=== PATIENT | female | born 1985 | race Caucasian/White ===

== ENCOUNTER 2016-11-24 09:54 | Emergency (ER) | payer MEDICAID ==
[2016-11-24 10:30] VITALS: BP 118/66
--- NOTE | 2016-11-24 11:27 | EDM.PDOC ---
ED HPI GENERAL MEDICAL PROBLEM - General Chief Complaint: General Stated Complaint: 12 WEEKS PREG- SINUS INFECTION Time Seen by Provider: 11/24/16 10:59 Source of Information: Reports: Patient History Limitations: Reports: No limitations - History of Present Illness INITIAL COMMENTS - FREE TEXT/NARRATIVE: Patient is a 31-year-old female presents ED complaining of sinus congestion, sinus pressure, mild headache, rhinitis, sinus congestion, and mild body aches. States symptoms came on last night. She's had intermittent sore throat secondary to postnasal drip. Denies cough, fever, shortness breath, chest pain , abdominal pain, pain with urination, or rash. States had similar symptoms that started approximately 1week ago that are improving over the last 2 days. Patient states she has a history of bipolar anxiety and is 12 weeks . Has been confirmed via ultrasound and is currently on progesterone. Patient continues to smoke 2 cigarettes a day denies any alcohol or recreational drug use. Patient states she wants antibiotics. 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 (see below) (None stated) Generalized Pain Score (Numeric/FACES): 2 - Related Data Allergies Allergy/AdvReac Type Severity Reaction Status Date / Time No Known Allergies Allergy Verified 11/24/16 10:30 Home Meds: Home Meds Progesterone 50 mg PO DAILY 11/24/16 [History] Past Medical History HEENT History: Reports: Impaired vision Respiratory History: Reports: Bronchitis, recurrent 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: Reports: GERD Musculoskeletal History: Reports: Fracture Other Musculoskeletal History: right foot fracture 3 years ago Neurological History: Reports: Other (see below) Other Neuro History: dizziness Psychiatric History: Reports: Anxiety, Bipolar, Depression - Past Surgical History HEENT Surgical History: Reports: None Respiratory Surgical History: Reports: None GI Surgical History: Reports: None Neurological Surgical History: Reports: None Musculoskeletal Surgical History: Reports: None Social & Family History - Tobacco Use Smoking Status *Q: Current Every Day Smoker Years of Tobacco use: 10 Packs/Tins Daily: 0.2 Used Tobacco, but Quit: No Second Hand Smoke Exposure: Yes - Caffeine Use Caffeine Use: Reports: Coffee - Recreational Drug Use Recreational Drug Use: No Drug Use in Last 12 Months: Yes Recreational Drug Type: Reports: Marijuana/Hashish Recreational Drug Use Frequency: Weekly ED ROS GENERAL - Review of Systems Review Of Systems: See Below Constitutional: Denies: fever, chills, malaise, weakness, fatigue, decreased appetite HEENT: Reports: Rhinitis, Throat pain (Intermittent mild), Other (Sinus pressure ). Denies: Dental pain, Ear discharge, Ear pain, Nose pain, Throat swelling Respiratory: Reports: No Symptoms Cardiovascular: Reports: No symptoms GI/Abdominal: Reports: No symptoms Skin: Reports: no symptoms ED EXAM, GENERAL - Physical Exam Exam: See Below Exam Limited By: No limitations General Appearance: alert, WD/WN, no apparent distress Eye Exam: bilateral eye: PERRL Ears: normal external exam, normal canal, hearing grossly normal, normal TMs Nose: normal inspection, nasal swelling, nasal drainage, clear rhinorrhea. No: no blood, nasal tenderness Throat/Mouth: Normal inspection, Normal oropharynx, Normal voice, No airway compromise Head: atraumatic, normocephalic Neck: normal inspection, supple, non-tender, full range of motion. No: lymphadenopathy (L), lymphadenopathy (R) Respiratory/Chest: no respiratory distress, lungs clear, normal breath sounds, no accessory muscle use, chest non-tender Cardiovascular: normal peripheral pulses, regular rate, rhythm Peripheral Pulses: 2+: radial (L) Neurological: alert, oriented, CN II-XII intact, normal cognition, no motor/ sensory deficits Psychiatric: normal affect, normal mood Skin Exam: Warm, Dry, Intact, Normal color Course - Vital Signs Last Recorded V/S: Last Vital Signs Temp 97.4 F 11/24/16 10:27 Pulse 70 11/24/16 10:27 Resp 18 11/24/16 10:27 BP 118/66 11/24/16 10:27 Pulse Ox 97 11/24/16 10:27 - Re-Assessments/Exams Free Text/Narrative Re-Assessment/Exam: History and physical examination consistent with viral etiology. Treatment is symptomatic care only. Will discharge patient home with instructions as documented. No additional testing is required. 11/24/16 11:23 Departure - Departure Time of Disposition: 11:23 Disposition: Home, Self-Care 01 Condition: good Clinical Impression: Viral upper respiratory infection Qualifiers: Weeks of gestation: 12 weeks Qualified Code(s): Z3A.12 - 12 weeks gestation of Acute sinusitis Qualifiers: Sinusitis location: maxillary Recurrence: non-recurrent Qualified Code(s): J01.00 - Acute maxillary sinusitis, unspecified Instructions: First Trimester of , [id number], Sinusitis, Adult, Gizh-xe-Opri, Upper Respiratory Infection, Adult, Rnhs-ti-Xesc Referrals: Marleni Szymanski [employer] [Primary Care Provider] - Forms: ED Department Discharge Additional Instructions: As discussed symptoms are most likely related to a viral upper respiratory infection. Treatment is symptomatic care only. This will take approximately 7 to 10 days to improve. Ensure adequate hydration, sleep, and adequate diet. Can take afrin 1 spray each nare twice a day for three days for sinus congestion. Utilize nasal saline spray to each nare as needed for sinus congestion. Refrain from any other OTC medications without consulting pharmacist due to . Followup with PCP in the next week if symptoms have not improved. Return to the E.D. if you develop any new or worsening symptoms.
== END 2016-11-24 11:37 | disposition home or self-care (01) ==
LOC: JD.ED 09:54
DX: O99.511 Diseases of the respiratory system complicating pregnancy, first trimester (principal); J01.00 Acute maxillary sinusitis, unspecified; O99.331 Smoking (tobacco) complicating pregnancy, first trimester; F17.210 Nicotine dependence, cigarettes, uncomplicated; Z3A.12 12 weeks gestation of pregnancy; Z79.899 Other long term (current) drug therapy
CPT/HCPCS: 99283

== ENCOUNTER 2017-06-02 22:27 | Inpatient (IN) | payer MEDICAID ==
[2017-06-02] MEDS ORDERED: Ondansetron 4 MG/2 ML SDV IVPUSH PRN (23:41)
[2017-06-02] MEDS ORDERED: Nalbuphine 20 MG/1 ML Amp IVPUSH PRN (23:41)
[2017-06-02] MEDS ORDERED: Lidocaine 1% 50 ML MDV INJECT ONE (23:41)
[2017-06-02] MEDS ORDERED: Sodium Chloride 0.9% 10 ML Syringe FLUSH PRN (23:41)
[2017-06-02] MEDS ORDERED: Oxytocin/Lactated Ringers 10 UNIT/1,000 ML BAG IV SCH (23:45)
[2017-06-02] MEDS ORDERED: Lactated Ringers 1,000 ML IV SCH (23:45)
[2017-06-03] MEDS ORDERED: fentaNYL 100 MCG/2 ML SDV EPIDUR PRN (01:17)
[2017-06-03] MEDS ORDERED: Ondansetron 4 MG/2 ML SDV IVPUSH PRN (01:17)
[2017-06-03] MEDS ORDERED: ePHEDrine 50 MG/ML SDV IVPUSH PRN (01:17)
[2017-06-03] MEDS ORDERED: Bupivacaine/fentaNYL/NS 100 ML Bag EPIDUR SCH (01:30)
--- NOTE | 2017-06-03 02:22 | PCM.LDHP ---
L&D History of Present Illness - General Date of Service: 06/02/17 Admit Problem/Dx: Patient Status Order with Admit Dx/Problem 06/02/17 23:42 Patient Status [ADT] Routine Admission Diagnosis/Problem Admission Diagnosis/Problem Labor established 06/03/17 02:08 39-1/7 week intrauterine , active labor, spontaneous rupture of membranes Source of Information: Patient History Limitations: Reports: No Limitations - History of Present Illness Introduction:: H&P-done after precipitous labor and the delivery of the baby. Nicole is a 31-year-old 1 para 0 white female was admitted on late night of 06/02/2017 for spontaneous rupture membranes, active labor. She progressed rapidly from 2 cm to complete by approximately 0130 hrs. on 2016. She pushed for approximately 15 minutes and delivered a viable, cheema , female infant with Apgars of 8 and 9, in a left occiput anterior position over a second-degree perineal laceration at 0146 hrs. Nose and mouth were bulb suctioned and the baby was placed on mom's abdomen. The baby weighed 7 lbs. 4 oz. (3290 g) and was 20.5 inches long. The placenta delivered intact, in a Broussard presentation and appeared complete. Lidocaine 1%-8 mL was used for anesthesia. Repair was done with 3-0 Monocryl in a routine fashion. EBL was 100 mL. Condition after delivery: Good. Pitocin was given per IV to facilitate increase in uterine tone and decrease risk of bleeding. Patient nursed the baby after delivery. 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 Her MEGAN is 06/09/2017 as per an early ultrasound done at 7-5/7 weeks gestational age and supported by 2 other ultrasounds done on 01/23/2017 and 01/29/2017. course was relatively unremarkable. Her menarche was at age 18. Cycles fairly regular but last menstrual period was not certain at 08/14/2016 onset. Patient has had some anxiety during the course of the loop care and was on sertraline until approximately 36 weeks. She had a left breast nodule during which remained stable and was felt to be benign. She declined genetic testing. [place] depression screening done on 01/31/2017 was within normal limits. Her group B strep screen was negative. She has a history of bipolar disorder diagnosed as a child but never treated until present. 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 Patient was smoking at the onset of the but quit by 20 weeks. She had a history of scabies during the and was treated. Weight gain during the course of was from a pregravid weight of 150.8 to the last weight of 198.8. This was a 48 pound weight gain. Her vital signs remained stable throughout the course. laboratory testing: Blood is O+. Antibody screen is negative. Hemoglobin on first visit was 12.9 g/dL. Platelets were 224,000. Pap smear was normal. Rubella titer showed immunity. RPR is nonreactive. Hepatitis B surface antigen and HIV assays were negative. Chlamydia and gonorrhea both negative. Second trimester labs showed a hemoglobin of 12.3 g/dL-normal. Her platelet count was 205,000 and her 1 hour glucose tarsus was 108. Group B strep screen was negative. Allergies: none Medications: vitamins 1 daily Past medical history: 1. Bipolar disorder, anxiety. Past surgical history: 1. Trigger thumb release at age 4 Family history: Father's had 3 heart attacks. Mother is alive and well. No , anesthesia, bleeding or blood clotting problems noted family. Social history: Patient is single, lives in [facility]. She does not use any significant amount of local, drugs or tobacco however did smoke 1 pack per day during the early part of the . Review of systems: Skin: Negative Lungs: No infection or asthma noted Cardiovascular: No shortness of breath or exercise intolerance. Breasts: Changes cirrhosis GI: Negative : Changes associated with Neurological: Negative Musculoskeletal: Occasional erythema associated with . Physical exam: On last evaluation in clinic patient was 5 feet 8 inches tall. Pregravid weight was 150.8 (body mass index of 22.2) with last weight 198.8 pounds for a 40 pound weight gain. Her last blood pressure was 132/80. heart rate then was 151. In general the patient is a well-developed, well-nourished, pleasant female of stated age in no acute distress. Skin is warm and dry without lesions. Lungs are clear with good breath sounds in all lung maynard. Cardiovascular exam shows regular rate and rhythm without murmurs. Breast exam is deferred having been done at first visit found to be with small nodule. This was evaluated with ultrasound and felt to be benign. Abdomen is protuberant with with last fundal height at 39 inches. Baby in vertex presentation Extremities show no significant edema, otherwise normal. Neurological exam normal. Pain Score: 9 - Related Data Allergies/Adverse Reactions: Allergies Allergy/AdvReac Type Severity Reaction Status Date / Time No Known Allergies Allergy Verified 11/24/16 10:30 Home Medications: Home Meds Docusate Sodium [Colace] 100 mg PO DAILY 02/16/17 [History] Pedi Multivit No.7/Folic Acid [Flintstones Tab] 2 tab PO DAILY 02/16/17 [History ] Sertraline [Zoloft] 50 mg PO DAILY 02/16/17 [History] Past Medical History HEENT History: Reports: Impaired Vision Respiratory History: Reports: Bronchitis, Recurrent 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: Reports: GERD Musculoskeletal History: Reports: Fracture Other Musculoskeletal History: right foot fracture 3 years ago Neurological History: Reports: Other (See Below) Other Neuro History: dizziness Psychiatric History: Reports: Anxiety, Bipolar, Depression - Past Surgical History HEENT Surgical History: Reports: None Respiratory Surgical History: Reports: None GI Surgical History: Reports: None Neurological Surgical History: Reports: None Musculoskeletal Surgical History: Reports: None Social & Family History - Tobacco Use Smoking Status *Q: Current Every Day Smoker Years of Tobacco use: 10 Packs/Tins Daily: 0.2 Used Tobacco, but Quit: No Second Hand Smoke Exposure: Yes - Caffeine Use Caffeine Use: Reports: Coffee - Recreational Drug Use Recreational Drug Use: No Drug Use in Last 12 Months: Yes Recreational Drug Type: Reports: Marijuana/Hashish Recreational Drug Use Frequency: Weekly H&P Review of Systems - Review of Systems: Review Of Systems: See Below L&D Exam - Exam Exam: See Below - Vital Signs Weight: 91.626 kg - Patient Data Lab Results Last 24 hrs: Laboratory Results - last 24 hr 06/03/17 06/03/17 Range/Units 00:30 00:30 WBC 16.73 H (3.98-10.04) K/mm3 RBC 4.06 (3.98-5.22) M/mm3 Hgb 12.1 (11.2-15.7) gm/L Hct 35.2 (34.1-44.9) % MCV 86.7 (79.4-94.8) fl MCH 29.8 (25.6-32.2) pg MCHC 34.4 (32.2-35.5) g/dl RDW Std Deviation 41.4 (36.4-46.3) fL Plt Count 173 L (182-369) K/mm3 MPV 11.5 (9.4-12.3) fl Neut % (Auto) 80.1 H (34.0-71.1) % Lymph % (Auto) 10.6 L (19.3-51.7) % [place] % (Auto) 8.2 (4.7-12.5) % Eos % (Auto) 0.5 L (0.7-5.8) Baso % (Auto) 0.1 (0.1-1.2) % Neut # (Auto) 13.41 H (1.56-6.13) K/mm3 Lymph # (Auto) 1.77 (1.18-3.74) K/mm3 [place] # (Auto) 1.37 H (0.24-0.36) K/mm3 Eos # (Auto) 0.08 (0.04-0.36) K/mm3 Baso # (Auto) 0.02 (0.01-0.08) K/mm3 Blood Type O POSITIVE Gel Antibody Screen Negative Result Diagrams: 06/03/17 00:30 Problem List Initiated/Reviewed/Updated: Yes Orders Last 24hrs: Active Orders 24 hr Category Date Time Status Patient Status [ADT] Routine ADT 06/02/17 23:42 Active Activity as Tolerated [RC] PFP Care 06/02/17 23:42 Active Communication Order [RC] ASDIRECTED Care 06/02/17 23:42 Active Heart Tones [RC] ASDIRECTED Care 06/02/17 23:43 Active Notify Provider [RC] ASDIRECTED Care 06/03/17 01:17 Active Notify Provider [RC] PFP Care 06/02/17 23:42 Active Notify Provider [RC] PRN Care 06/02/17 23:42 Active Oxygen Therapy [RC] ASDIRECTED Care 06/03/17 01:17 Active Peripheral IV Care [RC] . DIRECTED Care 06/02/17 23:43 Active Pulse Oximetry [RC] ASDIRECTED Care 06/03/17 01:17 Active Vital Signs [RC] PER UNIT ROUTINE Care 06/02/17 23:42 Active Bupivacaine/fentaNYL/NS [fentaNYL/Bupivacaine/NS 2 MCG- Med 06/03/17 01:30 Active 0.125% 100 ML] 100 ml EPIDUR ASDIRECTED Lactated Ringers [Ringers, Lactated] 1,000 ml Med 06/02/17 23:45 Active IV ASDIRECTED Nalbuphine [Nubain] Med 06/02/17 23:41 Active 10 mg IVPUSH Q2H PRN Ondansetron [Zofran] Med 06/03/17 01:17 Active 4 mg IVPUSH ONETIME PRN Ondansetron [Zofran] Med 06/02/17 23:41 Active 4 mg IVPUSH Q4H PRN Oxytocin/Lactated Ringers [Pitocin in LR 10 Units/1,000 Med 06/02/17 23:45 Active ML] 10 unit in 1,000 ml IV .CONTINUOUS Sodium Chloride 0.9% [Saline Flush] Med 06/02/17 23:41 Active 10 ml FLUSH ASDIRECTED PRN ePHEDrine [ePHEDrine Sulfate] Med 06/03/17 01:17 Active 5 mg IVPUSH ASDIRECTED PRN fentaNYL [Sublimaze] Med 06/03/17 01:17 Active 100 mcg EPIDUR Q3H PRN Electronic Heart Tones Ext w TOCO [WOMSER] Oth 06/02/17 23:42 Ordered Routine Electronic Heart Tones Internal [WOMSER] Per Unit Oth 06/02/17 23:42 Ordered Routine Peripheral IV Insertion Adult [OM.PC] Routine Oth 06/02/17 23:42 Ordered Resuscitation Status Routine Resus Stat 06/02/17 23:41 Ordered Medication Orders Ephedrine Sulfate (Ephedrine Sulfate) 5 mg IVPUSH ASDIRECTED PRN PRN Reason: Hypotension Fentanyl (Sublimaze) 100 mcg EPIDUR Q3H PRN PRN Reason: Pain Fentanyl/Bupivacaine HCl (Fentanyl/Bupivacaine/Ns 2 Mcg-0.125% 100 Ml) 100 ml EPIDUR ASDIRECTED EB Lactated Ringer's (Ringers, Lactated) 1,000 mls @ 100 mls/hr IV ASDIRECTED EB Oxytocin/Lactated Ringer's (Pitocin In Lr 10 Units/1,000 Ml) 10 unit in 1,000 mls @ 500 mls/hr IV .CONTINUOUS EB Nalbuphine HCl (Nubain) 10 mg IVPUSH Q2H PRN PRN Reason: Pain (moderate 4-6) Last Admin: 06/03/17 00:06 Dose: 10 mg Ondansetron HCl (Zofran) 4 mg IVPUSH Q4H PRN PRN Reason: Nausea/Vomiting Ondansetron HCl (Zofran) 4 mg IVPUSH ONETIME PRN PRN Reason: Nausea/Vomiting Sodium Chloride (Saline Flush) 10 ml FLUSH ASDIRECTED PRN PRN Reason: Keep Vein Open Assessment/Plan Comment:: Assessment: 1. 39-17 week IUP, sweatiness rupture of membranes, active precipitous labor with delivery. 2. Group B strep screen negative 3. Patient did desire an epidural but was unable to have this because of precipitous nature of her labor. 4. Patient plans to breast-feed 5. Patient has a history of bipolar disorder and anxiety, treated with sertraline in until 36 weeks Plan: 1. Routine care 2. Regular, nursing diet 3. Continue vitamins 4. Patient desires not to restart sertraline at this time. 5. CBC in the a.m.
--- NOTE | 2017-06-03 02:26 | PCM.SN ---
- Free Text/Narrative Note: Delivery note: Nicole is a 31-year-old 1 para 0 white female was admitted late on the night of 06/02/2017 for spontaneous rupture membranes, active labor. She progressed rapidly from 2 cm to complete by approximately 0130 hrs. on 2016. She pushed for approximately 15 minutes and delivered a viable, cheema , female with Apgars of 8 and 9, in a left occiput anterior position over a second-degree perineal laceration at 0146 hrs. Nose and mouth were bulb suctioned and the baby was placed on mom's abdomen. The baby weighed 7 lbs. 4 oz. (3290 g) and was 20.5 inches long. The placenta delivered intact, in a Broussard presentation and appeared complete. Lidocaine 1%-8 mL was used for anesthesia. Repair was done with 3-0 Monocryl in a routine fashion. EBL was 100 mL. Condition after delivery: Good. Pitocin was given per IV to facilitate increase in uterine tone and decrease risk of bleeding. Patient nursed the baby after delivery. Baby's name is Denice Escudero.
[2017-06-03] MEDS ORDERED: Lanolin 100% Cream 7 GM Tube TOP PRN (04:54)
[2017-06-03] MEDS ORDERED: Acetaminophen 325 MG Tab PO PRN (04:54)
[2017-06-03] MEDS ORDERED: Witch Hazel Medicated Pads 100/Jar TOP PRN (04:54)
[2017-06-03] MEDS ORDERED: Benzocaine/Menthol 20%-0.5% Spray 56 GM Canister TOP PRN (04:54)
[2017-06-03] MEDS ORDERED: Docusate Sodium 100 MG Cap PO PRN (04:54)
[2017-06-03] MEDS: Ibuprofen 600 MG Tab PO PRN ×4 (07:41→21:30)
[2017-06-03] MEDS ORDERED: Prenatal Multivitamin with Calcium/Folic Acid/Iron Tab PO SCH (09:00)
[2017-06-03] MEDS ORDERED: Famotidine 20 MG Tab PO PRN (09:03)
[2017-06-04] MEDS: Ibuprofen 600 MG Tab PO PRN ×2 (04:16→09:38)
[2017-06-04 10:02] VITALS: BP 129/67
--- NOTE | 2017-06-04 11:35 | PCM.DCSUM1 ---
Discharge Summary - Hospital Course Free Text/Narrative:: Nicole is a 31-year-old 1 para 0 white female was admitted late on the night of 06/02/2017 for spontaneous rupture membranes, active labor. She progressed rapidly from 2 cm to complete by approximately 0130 hrs. on 2016. She pushed for approximately 15 minutes and delivered a viable, cheema , female infant with Apgars of 8 and 9, in a left occiput anterior position over a second-degree perineal laceration at 0146 hrs. Nose and mouth were bulb suctioned and the baby was placed on mom's abdomen. The baby weighed 7 lbs. 4 oz. (3290 g) and was 20.5 inches long. The placenta delivered intact, in a Broussard presentation and appeared complete. Lidocaine 1%-8 mL was used for anesthesia. Repair was done with 3-0 Monocryl in a routine fashion. EBL was 100 mL. Condition after delivery: Good. Pitocin was given per IV to facilitate increase in uterine tone and decrease risk of bleeding. Patient nursed the baby after delivery. Baby's name is Denice Escudero. she has done very well. She is nursing without problems, ambulating well, has minimal lochia and has had a normal follow-up CBC. She is desiring discharge home. - Discharge Data Discharge Date: 06/04/17 Discharge Disposition: Home, Self-Care 01 Condition: Good - Patient Instructions Diet: Regular Diet as Tolerated (Nursing diet with increased calcium and calories as recommended) Activity: As Tolerated (No intercourse or tampons until bleeding resolves) Driving: May Drive Today Showering/Bathing: May Shower (May take a bath) - Discharge Plan Home Medications: Home Meds Docusate Sodium [Colace] 100 mg PO DAILY 02/16/17 [History] Pedi Multivit No.7/Folic Acid [Flintstones Tab] 2 tab PO DAILY 02/16/17 [History ] Ibuprofen [IJD: Ibuprofen] 600 mg PO Q4H PRN #30 tablet 06/04/17 [Rx] Referrals: John Hare MD [Primary Care Provider] - (Return to clinic-Dr. Hare-2 weeks-[facility] - Discharge Summary/Plan Comment DC Time >30 min.: No Discharge Summary/Plan Comment: Discharge instructions: 1. Discharge home 2. Regular, high fiber, nursing diet 3. Activity and follow-up discussed in detail. 4. Medications per home medication printed, discussed with and given to the patient. 5. Precautions given concern increased pain, bleeding, temperature, signs/ symptoms of DVT/PE. 6. Return to clinic-Dr. Hare-2 weeks-[facility]. Diagnosis: 39 week intrauterine -delivered Condition: Good - Patient Data Vitals - Most Recent: Last Vital Signs Temp 36.4 C 06/04/17 09:43 Pulse 85 06/04/17 09:43 Resp 16 06/04/17 09:43 BP 129/67 06/04/17 09:43 Pulse Ox 100 06/04/17 09:43 Weight - Most Recent: 91.626 kg I&O - Last 24 hours: Intake & Output 06/03/17 06/04/17 06/04/17 22:59 06:59 14:59 Intake Total 540 360 Balance 540 360 Lab Results - Last 24 hrs: Laboratory Results - last 24 hr 06/04/17 Range/Units 06:30 WBC 15.40 H (3.98-10.04) K/mm3 RBC 3.57 L (3.98-5.22) M/mm3 Hgb 10.6 L (11.2-15.7) gm/L Hct 32.1 L (34.1-44.9) % MCV 89.9 (79.4-94.8) fl MCH 29.7 (25.6-32.2) pg MCHC 33.0 (32.2-35.5) g/dl RDW Std Deviation 43.9 (36.4-46.3) fL Plt Count 186 (182-369) K/mm3 MPV 11.4 (9.4-12.3) fl Med Orders - Current: Current Medications Acetaminophen (Tylenol) 650 mg PO Q4H PRN PRN Reason: mild pain or fever Last Admin: 06/03/17 23:35 Dose: 650 mg Benzocaine/Menthol (Dermoplast Pain Relief [place]) 0 gm TOP ASDIRECTED PRN PRN Reason: Perineal Comfort Measure Last Admin: 06/03/17 23:36 Dose: 1 canister Docusate Sodium (Colace) 100 mg PO BID PRN PRN Reason: Constipation Emollient Ointment (Lansinoh Hpa) 0 gm TOP ASDIRECTED PRN PRN Reason: Sore Nipples Last Admin: 06/03/17 19:19 Dose: 1 applic Famotidine (Pepcid) 20 mg PO BID PRN PRN Reason: Heartburn Ibuprofen (Motrin) 600 mg PO Q4H PRN PRN Reason: Mild pain or fever Last Admin: 06/04/17 09:38 Dose: 600 mg Prenat Multivit/[place]/Iron/Folic Ac ( Plus Iron) 1 each PO DAILY [facility] Last Admin: 06/03/17 14:24 Dose: Not Given Witch Nubia (Tucks) 1 pad TOP ASDIRECTED PRN PRN Reason: Hemorrhoid pain Last Admin: 06/03/17 23:36 Dose: 1 box Discontinued Medications Ephedrine Sulfate (Ephedrine Sulfate) 5 mg IVPUSH ASDIRECTED PRN PRN Reason: Hypotension Fentanyl (Sublimaze) 100 mcg EPIDUR Q3H PRN PRN Reason: Pain Fentanyl/Bupivacaine HCl (Fentanyl/Bupivacaine/Ns 2 Mcg-0.125% 100 Ml) 100 ml EPIDUR ASDIRECTED [facility] Lactated Ringer's (Ringers, Lactated) 1,000 mls @ 100 mls/hr IV ASDIRECTED [facility] Last Admin: 06/02/17 23:30 Dose: 100 mls/hr Oxytocin/Lactated Ringer's (Pitocin In Lr 10 Units/1,000 Ml) 10 unit in 1,000 mls @ 500 mls/hr IV .CONTINUOUS [facility] Last Admin: 06/03/17 01:47 Dose: 500 mls/hr Lidocaine HCl (Xylocaine 1%) 50 ml INJECT ONETIME ONE Stop: 06/02/17 23:42 Last Admin: 06/03/17 01:50 Dose: 50 ml Nalbuphine HCl (Nubain) 10 mg IVPUSH Q2H PRN PRN Reason: Pain (moderate 4-6) Last Admin: 06/03/17 00:06 Dose: 10 mg Ondansetron HCl (Zofran) 4 mg IVPUSH Q4H PRN PRN Reason: Nausea/Vomiting Ondansetron HCl (Zofran) 4 mg IVPUSH ONETIME PRN PRN Reason: Nausea/Vomiting Sodium Chloride (Saline Flush) 10 ml FLUSH ASDIRECTED PRN PRN Reason: Keep Vein Open *Q Meaningful Use (DIS) - VTE *Q VTE Criteria *Q: - Stroke *Q Stroke Criteria *Q: - AMI *Q AMI Criteria *Q:
== END 2017-06-04 11:30 | disposition home or self-care (01) | DRG 775 ==
LOC: JD.OBCHECK 22:27 → JD.OB 22:29 → JD.OBCHECK 06-03 00:05 → JD.OB 06-03 00:06 → OBSVTOIN 06-03 01:46 → JD.OB 06-03 01:46
PROVIDERS: ADMIT Obstetrics & Gynecology; ATTEND Obstetrics & Gynecology
PROC: 10E0XZZ Delivery of Products of Conception, External Approach (ICD-10-PCS; principal; 2017-06-03)
PROC: 0KQM0ZZ Repair Perineum Muscle, Open Approach (ICD-10-PCS; 2017-06-03)
DX: O42.02 Full-term premature rupture of membranes, onset of labor within 24 hours of rupture (principal); Z37.0 Single live birth; Z3A.39 39 weeks gestation of pregnancy; O99.334 Smoking (tobacco) complicating childbirth; O99.344 Other mental disorders complicating childbirth; F41.8 Other specified anxiety disorders; Z79.899 Other long term (current) drug therapy; O62.3 Precipitate labor; O70.1 Second degree perineal laceration during delivery
CPT/HCPCS: 36415; 59300; 59409; 85025; 85027; 86850; 86900; 86901; A9270-GY; J2300; J2590; J7120

== ENCOUNTER 2017-06-30 14:26 | Emergency (ER) | payer MEDICAID ==
[2017-06-30 14:51] VITALS: BP 124/91
[2017-06-30] MEDS ORDERED: Ibuprofen 800 MG Tab PO ONE (15:30)
--- NOTE | 2017-06-30 15:32 | EDM.PDOC ---
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 She is 4 weeks post after a normal vaginal delivery, not complicated, which occurred on June 03. Since then she's been doing well. She states that she did have heavy bleeding initially after the and then some brownish vaginal discharge for a while and this had completely resolved. Then 2 days ago she started to get brighter red bleeding again more similar to a menstrual period. She comes in for evaluation of this. States that the bleeding has been moderately heavy, similar to a menstrual period. She is not passing clots. No abdominal pain. No fever. No additional complaint. She is not breast-feeding. She is not using any hormonal control. - Related Data Allergies Allergy/AdvReac Type Severity Reaction Status Date / Time No Known Allergies Allergy Verified 06/30/17 14:46 Home Meds: Home Meds Pedi Multivit No.7/Folic Acid [Flintstones Tab] 2 tab PO DAILY 02/16/17 [History ] Ibuprofen [IJD: Ibuprofen] 600 mg PO Q4H PRN #30 tablet 06/04/17 [Rx] Past Medical History HEENT History: Reports: Impaired Vision Respiratory History: Reports: Bronchitis, Recurrent 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: Reports: GERD Musculoskeletal History: Reports: Fracture Other Musculoskeletal History: right foot fracture 3 years ago Neurological History: Reports: Other (See Below) Other Neuro History: dizziness Psychiatric History: Reports: Anxiety, Bipolar, Depression - Past Surgical History HEENT Surgical History: Reports: None Respiratory Surgical History: Reports: None GI Surgical History: Reports: None Neurological Surgical History: Reports: None Musculoskeletal Surgical History: Reports: None Social & Family History - Tobacco Use Smoking Status *Q: Never Smoker Years of Tobacco use: 10 Packs/Tins Daily: 0.2 Used Tobacco, but Quit: No Second Hand Smoke Exposure: Yes - Caffeine Use Caffeine Use: Reports: Coffee, Soda - Recreational Drug Use Recreational Drug Use: No Drug Use in Last 12 Months: Yes Recreational Drug Type: Reports: Marijuana/Hashish Recreational Drug Use Frequency: Weekly ED ROS GENERAL - Review of Systems Review Of Systems: See Below Constitutional: Denies: Fever Respiratory: Denies: Cough Cardiovascular: Denies: Chest Pain Endocrine: Reports: No Symptoms GI/Abdominal: Denies: Abdominal Pain : Denies: Pain Hematologic/Lymphatic: Denies: Easy Bleeding ED EXAM, RENAL/ - Physical Exam Exam: See Below Exam Limited By: No Limitations General Appearance: Alert, WD/WN, No Apparent Distress Eye Exam: Bilateral Eye: Normal Inspection Ears: Normal External Exam Nose: Normal Inspection Throat/Mouth: Normal Inspection, Normal Oropharynx, Normal Voice, No Airway Compromise Head: Atraumatic, Normocephalic Neck: Normal Inspection Respiratory/Chest: No Respiratory Distress, Lungs Clear, Normal Breath Sounds Cardiovascular: Normal Peripheral Pulses, Regular Rate, Rhythm, No Murmur GI/Abdominal: Soft, Non-Tender, No Distention. No: Rebound (Female) Exam: Normal External Exam, Vaginal Bleeding (Mild, dark red, no clots) Extremities: Normal Inspection Neurological: Alert, Oriented, Normal Cognition Psychiatric: Normal Affect, Normal Mood Skin Exam: Warm, Dry, Intact, Normal Color, No Rash Course - Vital Signs Last Recorded V/S: Last Vital Signs Temp 36.3 C 06/30/17 14:47 Pulse 89 06/30/17 14:47 Resp 12 06/30/17 14:47 BP 124/91 H 06/30/17 14:47 Pulse Ox 98 06/30/17 14:47 - Orders/Labs/Meds Orders: Active Orders 24 hr Category Date Time Status Pelvic Exam, Set Up [RC] ASDIRECTED Care 06/30/17 15:30 Active TYPE AND SCREEN [BBK] Stat Lab 06/30/17 15:11 Ordered Labs: Laboratory Tests 06/30/17 06/30/17 Range/Units 15:20 15:20 WBC 13.12 H (3.98-10.04) K/mm3 RBC 4.76 (3.98-5.22) M/mm3 Hgb 13.7 (11.2-15.7) gm/L Hct 42.3 (34.1-44.9) % MCV 88.9 (79.4-94.8) fl MCH 28.8 (25.6-32.2) pg MCHC 32.4 (32.2-35.5) g/dl RDW Std Deviation 41.5 (36.4-46.3) fL Plt Count 268 (182-369) K/mm3 MPV 11.2 (9.4-12.3) fl Neut % (Auto) 76.2 H (34.0-71.1) % Lymph % (Auto) 16.3 L (19.3-51.7) % Atkinson % (Auto) 4.7 (4.7-12.5) % Eos % (Auto) 2.4 (0.7-5.8) Baso % (Auto) 0.2 (0.1-1.2) % Neut # (Auto) 9.99 H (1.56-6.13) K/mm3 Lymph # (Auto) 2.14 (1.18-3.74) K/mm3 Atkinson # (Auto) 0.62 H (0.24-0.36) K/mm3 Eos # (Auto) 0.31 (0.04-0.36) K/mm3 Baso # (Auto) 0.03 (0.01-0.08) K/mm3 Sodium 143 (136-145) mEq/L Potassium 3.8 (3.5-5.1) mEq/L Chloride 105 (98-107) mEq/L Carbon Dioxide 28 (21-32) mEq/L Anion Gap 13.8 (5-15) BUN 13 (7-18) mg/dL Creatinine 0.9 (0.55-1.02) mg/dL Est Cr Clr Drug Dosing 93.04 mL/min Estimated GFR (MDRD) > 60 (>60) mL/min BUN/Creatinine Ratio 14.4 (14-18) Glucose 98 (74-106) mg/dL Calcium 9.1 (8.5-10.1) mg/dL Total Bilirubin 0.2 (0.2-1.0) mg/dL AST 24 (15-37) U/L ALT 29 (14-59) U/L Alkaline Phosphatase 100 (46-116) U/L Total Protein 7.3 (6.4-8.2) g/dl Albumin 3.4 (3.4-5.0) g/dl Globulin 3.9 gm/dL Albumin/Globulin Ratio 0.9 L (1-2) Meds: Medications Discontinued Medications Generic Name Dose Route Start Last Admin Trade Name Freq PRN Reason Stop Dose Admin Ibuprofen 800 mg 06/30/17 15:30 06/30/17 15:33 Motrin PO 06/30/17 15:31 800 mg ONETIME ONE Administration - Re-Assessments/Exams Free Text/Narrative Re-Assessment/Exam: 06/30/17 16:15 Hematocrit 42. Labs otherwise unremarkable. Discussed with Dr. Gillespie who agrees that this could be onset of her menses though it is early, however given lack of any additional symptoms and mild bleeding and benign exam with no anemia she does not feel the patient needs any further testing here in the emergency department. Discussed return precautions. The patient was follow-up with her OB provider this week. Departure - Departure Time of Disposition: 15:52 Disposition: Home, Self-Care 01 Clinical Impression: Vaginal bleeding - Discharge Information Instructions: Abnormal Uterine Bleeding Referrals: Marleni Szymanski, FAMILY LIFE EDUCATOR [Primary Care Provider] - Forms: ED Department Discharge Additional Instructions: 1. Follow up with Marleni Szymanski this week for further care 2. Return to the Emergency Department if you have any new concerning symptoms, such as severe abdominal pain, very heavy bleeding passing large clots and soaking through a pad or more per hour, or other concerning symptoms - My Orders Last 24 Hours: My Active Orders 06/30/17 15:11 TYPE AND SCREEN [BBK] Stat 06/30/17 15:30 Pelvic Exam, Set Up [RC] ASDIRECTED - Assessment/Plan Last 24 Hours: My Active Orders 06/30/17 15:11 TYPE AND SCREEN [BBK] Stat 06/30/17 15:30 Pelvic Exam, Set Up [RC] ASDIRECTED
== END 2017-06-30 16:14 | disposition home or self-care (01) ==
LOC: JD.ED 14:26
DX: O72.1 Other immediate postpartum hemorrhage (principal); Z79.899 Other long term (current) drug therapy
CPT/HCPCS: 36415; 80053; 85025; 86850; 86900; 86901; 99284; A9270; 99283

== ENCOUNTER 2017-11-20 08:22 | Emergency (ER) | payer MEDICAID ==
[2017-11-20 08:44] VITALS: BP 103/73
--- NOTE | 2017-11-20 09:39 | EDM.PDOC ---
ED HPI GENERAL MEDICAL PROBLEM - General Chief Complaint: Back Pain or Injury Stated Complaint: TAILBONE INJURY Time Seen by Provider: 11/20/17 09:34 Source of Information: Reports: Patient History Limitations: Reports: No Limitations - History of Present Illness INITIAL COMMENTS - FREE TEXT/NARRATIVE: 32-year-old female presents the ED after slipping and falling on ice outside her home yesterday morning about 11:00 or 11:30. She states she was striking the dog in the house with open door and slipped and fell with her hands. While boxing groceries. She landed hard on her buttock and lower back. She denies hitting her head hard was no loss of conscious. She did recognize that she suffered like a whiplash or hyperextension injury to her neck and has some pain in her neck as well. However this morning she's got increased pain throughout the thoracic lumbar spine and sacrum and coccyx tailbone area. He walking like a really old lady. Only one Aleve yesterday for pain. States it hurt to carry her 5-month-old daughter this morning. Examination reveals tenderness particularly lower back L4-L5 L5 fast S1 facet joints and throughout the sacrum and coccyx. There is pain throughout the thoracic spine but there is no spinous process abnormalities on examination or paraspinal muscle spasm. Plan x-ray of the T-spine AP and lateral views only. CT lumbar spine and pelvis to visualize the sacrum and cost 6 adequately. At this time will not provide any pain relief as she drove herself here. Onset Date: 11/19/17 Onset Time: 09:30 Duration: Hour(s): Location: Reports: Neck, Back, Pelvis (Sacrum and coccyx area.) Quality: Reports: Ache, Throbbing Severity: Moderate (Rates current pain as 7 out of 10. This is mostly in the coccyx.) Improves with: Reports: Rest Worsens with: Reports: Other, Movement Context: Reports: Trauma (Slipped and fell on the ice landing buttock first.). Denies: Activity (Especially sitting.), Exercise, Lifting, Sick Contact Associated Symptoms: Reports: No Other Symptoms Treatments NURSE PRACTITIONER PER DIEM: Reports: Acetaminophen Neck Pain Score (Numeric/FACES): 9 Lower Back Pain Score (Numeric/FACES): 7 - Related Data Allergies Allergy/AdvReac Type Severity Reaction Status Date / Time No Known Allergies Allergy Verified 11/20/17 08:43 Home Meds: Home Meds Diclofenac Sodium [Voltaren] 50 mg PO TID #24 tab.ec 11/20/17 [Rx] Ondansetron [Zofran] 4 mg BUCCAL Q6H PRN #10 tab 11/20/17 [Rx] oxyCODONE HCl/Acetaminophen [Percocet 5-325 mg Tablet] 1 - 2 each PO Q6H PRN # 16 tablet 11/20/17 [Rx] Past Medical History HEENT History: Reports: Impaired Vision Respiratory History: Reports: Bronchitis, Recurrent 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: Reports: 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: Musculoskeletal History: Reports: Fracture Other Musculoskeletal History: right foot fracture 3 years ago Neurological History: Reports: Other (See Below) Other Neuro History: dizziness Psychiatric History: Reports: Anxiety, Bipolar, Depression - Past Surgical History HEENT Surgical History: Reports: None Respiratory Surgical History: Reports: None GI Surgical History: Reports: None Neurological Surgical History: Reports: None Musculoskeletal Surgical History: Reports: None Social & Family History - Family History Cardiac: Reports: [place] Oncologic: Reports: Leukemia - Tobacco Use Smoking Status *Q: Current Every Day Smoker Years of Tobacco use: 14 Packs/Tins Daily: 0.4 Used Tobacco, but Quit: No Second Hand Smoke Exposure: Yes - Caffeine Use Caffeine Use: Reports: Coffee, Soda - Recreational Drug Use Recreational Drug Use: No Drug Use in Last 12 Months: Yes Recreational Drug Type: Reports: Marijuana/Hashish Recreational Drug Use Frequency: Weekly ED ROS GENERAL - Review of Systems Review Of Systems: See Below Constitutional: Reports: No Symptoms HEENT: Reports: No Symptoms Respiratory: Reports: No Symptoms Cardiovascular: Reports: No Symptoms Endocrine: Reports: No Symptoms GI/Abdominal: Reports: No Symptoms : Reports: No Symptoms Musculoskeletal: Reports: Back Pain (Neck pain mid back pain and low back pain and sacrum and coccyx pain.) Skin: Reports: No Symptoms ( Extremity injuries) Neurological: Reports: No Symptoms Psychiatric: Reports: No Symptoms Hematologic/Lymphatic: Reports: No Symptoms Immunologic: Reports: No Symptoms ED EXAM,LOWER BACK PAIN/INJURY - Physical Exam Exam: See Below Exam Limited By: No Limitations General Appearance: Alert, WD/WN, Moderate Distress (Prefers to lie in the left lateral decubitus position is this is most comfortable.) Throat/Mouth: Other Head: Atraumatic (No evidence of biting her tongue or injury to her teeth.), Normocephalic Neck: Normal Inspection, Supple, Non-Tender, Full Range of Motion, Other (Mild tenderness along the C5 C6 C7 areas bilaterally but she has full unopposed range of motion of her neck.). No: Lymphadenopathy (L), Lymphadenopathy (R) Respiratory/Chest: No Respiratory Distress, Lungs Clear, Normal Breath Sounds, No Accessory Muscle Use, Chest Non-Tender, Other (No pain on compression of her ribs.) Cardiovascular: Normal Peripheral Pulses, Regular Rate, Rhythm, No Edema, No Murmur GI/Abdominal: Normal Bowel Sounds, Soft, Non-Tender, No Organomegaly, No Abnormal Bruit, No Mass, Pelvis Stable Back Exam: Other (Has tenderness throughout the thoracic spine with no evidence of malposition of the spinous processes. Mild muscle spasm patient on the right side from T6-T12.) Extremities: Normal Inspection ( Similarly she has pain at L4-L5 L5-S1 facet joints in her lower back bilaterally and significant pain on minimal palpation of the sacrum and coccyx. There is no bruising contusion or loss of skin.), Other. No: Normal Range of Motion, Non-Tender, No Pedal Edema, Pedal Edema, Slow Capillary Refill, Joint Swelling Neurological: Alert (No injuries to her knees or elbows.) Psychiatric: Normal Affect, Normal Mood Skin Exam: Warm, Dry, Intact, Normal Color, No Rash Course - Vital Signs Last Recorded V/S: Last Vital Signs Temp 36.8 C 11/20/17 08:39 Pulse 80 11/20/17 08:39 Resp 16 11/20/17 08:39 BP 103/73 11/20/17 08:39 Pulse Ox 100 11/20/17 08:39 - Orders/Labs/Meds Orders: Active Orders 24 hr Category Date Time Status Thoracic Spine 2V [CR] Stat Exams 11/20/17 09:34 Taken - Radiology Interpretation Free Text/Narrative:: 32-year-old female presents to the ED for evaluation after slipping and falling on the ice yesterday morning outside her home. She landed buttock first injuring her tailbone sacrum and lower back. Over the last 24 hours she developed pain in her thoracic and cervical spine. She did not hit her head was no loss of consciousness. She denies any significant pain in her elbows knees or hips. No pain in her ribs either. Examination shows full unopposed range of motion of her cervical spine. She does have pain from T6-T12 in her lower back bilaterally with slight right-sided paraspinal muscle spasm. Marked pain at L4- L5 and L5-S1 facet joints in both sides of her lower back again no abrasions contusions noted. There is marked tenderness primarily over the upper sacrum and coccyx. Plan T-spine x-ray AP and lateral CT lumbar spine CT pelvis. - Re-Assessments/Exams Free Text/Narrative Re-Assessment/Exam: 11/20/17 11:03 x-rays of the thoracic spine AP and lateral views reveal no compression fractures or fractures. CT of her lumbar spine and pelvis and sacrum and coccyx are also within normal limits showing no fractures. Patient is suffered blunt force trauma to the bones in bone bruise particularly of the sacrum. To be conservative with ice pack to the area every 4 hours as needed for the next day. After this may apply heat packs to the sore areas. Placed on Voltaren 50 mg 3 times daily for the next 8 days to relieve pain and inflammation. Percocet 5/3/25 milligram tabs one or 2 every 4-6 hours for severe pain or to help sleep at night. Departure - Departure Time of Disposition: 11:04 Disposition: Home, Self-Care 01 Condition: Fair Clinical Impression: Strain of muscle and tendon of back wall of thorax, initial encounter Sprain of cervical neck Qualifiers: Encounter type: initial encounter Qualified Code(s): S13.9XXA - Sprain of joints and ligaments of unspecified parts of neck, initial encounter Lumbar back sprain Qualifiers: Encounter type: initial encounter Qualified Code(s): S33.5XXA - Sprain of ligaments of lumbar spine, initial encounter Contusion of sacrum Qualifiers: Encounter type: initial encounter Qualified Code(s): S30.0XXA - Contusion of lower back and pelvis, initial encounter - Discharge Information Prescriptions: Diclofenac Sodium [Voltaren] 50 mg PO TID #24 tab.ec Ondansetron [Zofran] 4 mg BUCCAL Q6H PRN #10 tab PRN Reason: nausea or vomiting oxyCODONE HCl/Acetaminophen [Percocet 5-325 mg Tablet] 1 - 2 each PO Q6H PRN # 16 tablet PRN Reason: pain relief. Instructions: Contusion, Cervical Strain and Sprain Rehab-SportsMed, Lumbosacral Strain Referrals: Marleni Szymanski VEGETABLE FARM WORKER [Primary Care Provider] - Forms: ED Department Discharge Additional Instructions: Evaluation the emergent today in regards to slip and fall on the ice outside of your home yesterday with blunt force trauma to the lower back and sacrum and tailbone area. This also resulted in a strain of your neck and your mid back. X- rays of the mid back do not reveal any broken bones. CT of the lumbar spine and pelvis and sacrum do not reveal any fractures in the tailbone or coccyx or sacrum sacrum. Treatment is therefore time to heal. This is likely badly bruised bone and it is very tender to sit for a lengthy period of time expect least 3-4 months. May want to purchase a doughnut pad to protect your tailbone area well seated in a vehicle or at home. Treatment with ice pack to the area for one half hour out of every 4 hours today. After this may apply heat to the area as needed. Suggest use of Voltaren 50 mg 3 times daily for the next 8 days to relieve pain and inflammation. Exit tabs 12/12/24 one or 2 every 4-6 hours for pain not controlled by Motrin alone particularly at nighttime to help sleep for the next 3-5 days. Expect neck back to get better over the next 7-10 days. The sacrum and coccyx may take much longer. Follow-up with personal physician if any further problem's occur. - My Orders Last 24 Hours: My Active Orders 11/20/17 09:34 Thoracic Spine 2V [CR] Stat - Assessment/Plan Last 24 Hours: My Active Orders 11/20/17 09:34 Thoracic Spine 2V [CR] Stat
--- NOTE | 2017-11-20 10:59 | CT ---
CT lumbar spine Technique: Multiple axial sections were obtained from above the T11-T12 disc inferiorly to the lower S3 segment. Reconstructed sagittal and coronal images were reviewed. Findings: Disc space narrowing is noted at T11-T12 with Schmorl node deformities. These findings are felt to be developmental and incidental. Vertebral bodies and posterior arches are intact with no fracture being seen. No traumatic disc herniation is seen. Mild diffuse posterior disc bulge is incidentally noted at L5-S1. No central canal stenosis or neural foraminal stenosis is seen. No abnormal subluxation is seen on the reconstructed sagittal images. Impression: 1. Nothing acute is seen on CT study of the lumbar spine. Diagnostic code #2
--- NOTE | 2017-11-20 11:01 | CT ---
CT pelvis Technique: Multiple axial sections through the pelvis were obtained. Reconstructed coronal and sagittal images were reviewed. Comparison: No previous pelvis exam. Findings: No sacral fracture is seen. Right and left hips appear within normal limits. No pelvic fracture is seen. Minimal sclerosis is noted within the sacroiliac joints which is felt to be due to mild degenerative change. Impression: 1. Slight sclerosis within the sacroiliac joints believed to represent mild degenerative change. 2. No acute bony abnormality is seen on CT study of the pelvis. Diagnostic code #2
--- NOTE | 2017-11-21 12:03 | CR ---
Thoracic spine: AP, lateral and swimmer's views of the thoracic spine were obtained. Comparison: No prior thoracic spine study. Mild scoliosis is seen. Vertebral body heights and disc spaces are maintained. Pedicles are intact. No subluxation or fracture is seen. Impression: 1. Mild scoliosis. Three-view thoracic spine study is otherwise unremarkable. Diagnostic code #2
== END 2017-11-20 11:20 | disposition home or self-care (01) ==
LOC: JD.ED 08:22
DX: S29.012A Strain of muscle and tendon of back wall of thorax, initial encounter (principal); S33.5XXA Sprain of ligaments of lumbar spine, initial encounter; S13.9XXA Sprain of joints and ligaments of unspecified parts of neck, initial encounter; S30.0XXA Contusion of lower back and pelvis, initial encounter; W00.2XXA Other fall from one level to another due to ice and snow, initial encounter; F17.210 Nicotine dependence, cigarettes, uncomplicated; K21.9 Gastro-esophageal reflux disease without esophagitis
CPT/HCPCS: 72070; 72070-26; 72131; 72131-26; 72192; 72192-26; 99284; 99284-25